=== PATIENT | male | born 1975 | race Caucasian/White ===

== ENCOUNTER 2018-11-21 12:57 | Outpatient (CLI) | payer BC ==
--- NOTE | 2018-11-21 15:36 | ULT ---
SOFT TISSUE NECK ULTRASOUND: HISTORY: Right neck mass. The patient has been feeling a small knot at the right lateral aspect of the neck, posteriorly x2 months. COMPARISON: None. TECHNIQUE: Targeted sonographic imaging in the region of concern is performed. Static images are reviewed. FINDINGS: There appears to be a 1.9 cm lymph node with a preserved fatty hilum. IMPRESSION: Lymph node corresponding to the palpable mass. Further evaluation with post contrast soft tissue nec k CT is recommend to exclude etiologies that may explain an enlarged lymph node, such as infection or malignancy. POS: [facility]
== END 2018-11-21 12:58 | disposition home or self-care (01) ==
LOC: SCSULT 12:57
PROVIDERS: ATTEND Family Medicine
DX: R59.9 Enlarged lymph nodes, unspecified (principal)
CPT/HCPCS: 76536

== ENCOUNTER 2018-11-26 07:18 | Outpatient (CLI) | payer BC ==
--- NOTE | 2018-11-26 09:31 | CT ---
POST CONTRAST SOFT TISSUE NECK CT: HISTORY: Right neck swelling. Evaluate for possible mass or lymph node. Region was marked. COMPARISON: None. TECHNIQUE: A post contrast soft tissue neck CT is performed in the axial plane. FINDINGS: The visualized brain parenchyma is unremarkable. Small mucus retention cyst in the left and right maxillary sinuses. The aerodigestive tract is patent. There is mild fullness of the left and right palatine tonsils, no nspecific. No definite masses seen in the oral cavity. Midline fatty [place] of the tongue is preserv ed. The epiglottis has a normal caliber. Preepiglottic fat is preserved. The supraglottic, glottic , and subglottic larynx is unremarkable. Symmetric attenuation of the parotid and submandibular glands. Symmetric attenuation of the sternocleidomastoid muscles. There are scattered nonspecific, nonenlarged bilateral soft tissue neck lymph nodes. No evidence of lymphadenopathy by size criteria. Grossly, the great vessels of the neck are patent. The upper mediastinum and lung apices are unremarkable. Cervical spine vertebral body height is maintained. There is no fracture. Mild loss of disk space h eight at C5-C6 and C6-C7 with osteophyte formation. No evidence of fractures. At the level of the palpable marker, no mass, lymphadenopathy, or hematoma. IMPRESSION: 1. No abnormality at the level of the palpable marker. 2. Slight fullness of the palatine tonsils, nonspecific. POS: H
== END 2018-11-26 07:19 | disposition home or self-care (01) ==
LOC: SCSCT 07:18
PROVIDERS: ATTEND Family Medicine
DX: R59.9 Enlarged lymph nodes, unspecified (principal); J35.9 Chronic disease of tonsils and adenoids, unspecified
CPT/HCPCS: 70491